=== PATIENT | male | born 1995 ===

== ENCOUNTER 2017-12-29 10:45 | Emergency (ER) | payer OTHER ==
--- NOTE | 2017-12-29 14:19 | UC ---
FLU HPI - HPI Summary HPI Summary: Pt c/o sudden onset of generalized malaise, fever, chills, and neck stiffness X 2 days. - History of Current Complaint Chief Complaint: UCRespiratory Stated Complaint: NECK PAIN Time Seen by Provider: 12/29/17 13:50 Hx Obtained From: Patient Onset/Duration: Sudden Onset, Lasting Days, Still Present Severity Currently: Mild Severity Initially: Mild Pain Intensity: 6 Associated Signs & Symptoms: Positive: Myalgia Related Hx: Possible Flu/Infectious Exposure - Risk Factors Influenza Risk Factors: Negative - Allergy/Home Medications Allergies/Adverse Reactions: Allergies Allergy/AdvReac Type Severity Reaction Status Date / Time amoxicillin Allergy Hives Verified 12/29/17 13:44 Penicillins Allergy Hives Verified 12/29/17 13:44 Home Medications: Home Medications Ibuprofen TAB* [Motrin TAB* 600 MG] 600 mg PO Q6H PRN 12/29/17 [History Confirmed 12/29/17] PMH/Surg Hx/FS Hx/Imm Hx Previously Healthy: Yes - Surgical History Surgical History: None - Family History Known Family History: Positive: Cardiac Disease - Social History Occupation: Student Lives: Dormitory/Roommates Alcohol Use: Occasionally Substance Use Type: None Smoking Status (MU): Never Smoked Tobacco Have You Smoked in the Last Year: No Review of Systems Constitutional: Fever, Chills Skin: Negative Eyes: Negative ENT: Negative Respiratory: Negative Cardiovascular: Negative Gastrointestinal: Negative Genitourinary: Negative Motor: Decreased ROM - neck Neurovascular: Negative Musculoskeletal: Decreased ROM - neck, Myalgia - neck Neurological: Negative Psychological: Negative Is Patient Immunocompromised?: No All Other Systems Reviewed And Are Negative: Yes Physical Exam Triage Information Reviewed: Yes Appearance: Well-Appearing Vital Signs: Initial Vital Signs Temp 99.6 F 12/29/17 13:40 Pulse 96 12/29/17 13:40 Resp 16 12/29/17 13:40 BP 123/71 12/29/17 13:40 Pulse Ox 99 12/29/17 13:40 Vital Signs Reviewed: Yes Eye Exam: Normal ENT Exam: Normal Dental Exam: Normal Neck exam: Other - neck stiffness Respiratory Exam: Normal Cardiovascular Exam: Normal Musculoskeletal: Positive: ROM Limited @ - neck, trigger point pain left upper shoulder medial aspect. Neurological Exam: Normal Psychological Exam: Normal Skin Exam: Normal Flu Course/Dx - Course Course Of Treatment: Rapid flu: negative - Differential Dx/Diagnosis Differential Diagnosis/HQI/PQRI: Influenza, Upper Respiratory Infection Provider Diagnoses: Trigger point muscle spasm. URI Discharge - Discharge Plan Condition: Stable Disposition: HOME Patient Education Materials: Upper Respiratory Infection (ED), Trigger Point Pain (ED), Neck Pain (ED) Referrals: [facility] [place] [facility] [Outside] Non Staff,Doctor [Primary Care Provider] -
== END 2017-12-29 14:26 | disposition home or self-care (01) ==
LOC: UCCORT 10:45
DX: Z72.89 Other problems related to lifestyle (principal); M62.838 Other muscle spasm; J06.9 Acute upper respiratory infection, unspecified
CPT/HCPCS: 87502; 99201; G0463

== ENCOUNTER 2018-10-11 11:55 | Emergency (ER) | payer OTHER ==
--- NOTE | 2018-10-11 13:07 | UC ---
Respiratory Complaint HPI - HPI Summary HPI Summary: persistant cough that gets worse at night for the past two weeks, he is a smoker , denies fever or other symtpoms - History of Current Complaint Stated Complaint: COUGH Time Seen by Provider: 10/11/18 13:06 Hx Obtained From: Patient Onset/Duration: Sudden Onset, Lasting Days Timing: Constant Severity Initially: Mild Severity Currently: Mild Aggravating Factors: Exertion, Recumbent Position Alleviating Factors: Nothing - Allergies/Home Medications Allergies/Adverse Reactions: Allergies Allergy/AdvReac Type Severity Reaction Status Date / Time amoxicillin Allergy Hives Verified 10/11/18 13:04 Penicillins Allergy Hives Verified 10/11/18 13:04 Home Medications: Home Medications Amphetamine MIXED SALTS TAB* [Adderall TAB*] 15 mg PO DAILY PRN 10/11/18 [ History Confirmed 10/11/18] PMH/Surg Hx/FS Hx/Imm Hx Previously Healthy: Yes - Surgical History Surgical History: None - Family History Known Family History: Positive: Cardiac Disease - Social History Alcohol Use: Occasionally Substance Use Type: None Smoking Status (MU): Never Smoked Tobacco Have You Smoked in the Last Year: No Review of Systems All Other Systems Reviewed And Are Negative: Yes Constitutional: Positive: Negative Skin: Positive: Negative Eyes: Positive: Negative ENT: Positive: Negative Respiratory: Positive: Shortness Of Breath, Cough Cardiovascular: Positive: Negative Gastrointestinal: Positive: Negative Genitourinary: Positive: Negative Motor: Positive: Negative Neurovascular: Positive: Negative Musculoskeletal: Positive: Negative Neurological: Positive: Negative Psychological: Positive: Negative Is Patient Immunocompromised?: No Physical Exam Triage Information Reviewed: Yes Appearance: Well-Appearing, Well-Nourished, Pain Distress Eye Exam: Normal ENT: Positive: Pharynx normal, TM bulging Dental Exam: Normal Neck exam: Normal Respiratory Exam: Normal Respiratory: Positive: Chest non-tender, Wheezing, Expiration, Inspiration Cardiovascular Exam: Normal Cardiovascular: Positive: RRR, No Murmur, Pulses Normal Bowel Sounds: Positive: Present Musculoskeletal Exam: Normal Neurological Exam: Normal Psychological Exam: Normal Skin Exam: Normal Respiratory Course/Dx - Course Course Of Treatment: hx obtained, exam performed ,meds reviewed, neb treatement given, treated for bronchospasm and serous otitis - Differential Dx/Diagnosis Differential Diagnosis/HQI/PQRI: Asthma, Bronchitis, Laryngitis, Sinusitis Provider Diagnoses: right serous otitis. bronchospasm. toabacoo abuse Discharge - Sign-Out/Discharge Documenting (check all that apply): Patient Departure All imaging exams completed and their final reports reviewed: No Studies - Discharge Plan Condition: Stable Disposition: HOME Prescriptions: Albuterol HFA INHALER* [Ventolin HFA Inhaler*] 2 puff INH Q4H PRN #1 mdi PRN Reason: Wheezing predniSONE [Prednisone 20 MG TAB] 40 mg PO DAILY #14 tablet Patient Education Materials: Bronchospasm (ED) Referrals: No Primary Care Phys,NOPCP [Primary Care Provider] - Additional Instructions: 1. take the medication as prescribed. I would start the prednisone in the morning. 2. Use the inhaler as needed 3. Increase fluid intake and get plenty of rest 4. FOllow up as needed. - Billing Disposition and Condition Condition: STABLE Disposition: Home
[2018-10-11 13:10] VITALS: BP 132/78
[2018-10-11] MEDS ORDERED: Albuterol 2.5 MG/3 ML NEB.SOL* (0.083%) INH ONE (13:14)
== END 2018-10-11 13:53 | disposition home or self-care (01) ==
LOC: UCCORT 11:55
DX: H65.91 Unspecified nonsuppurative otitis media, right ear (principal); J98.01 Acute bronchospasm; F17.200 Nicotine dependence, unspecified, uncomplicated; Z88.0 Allergy status to penicillin
CPT/HCPCS: 99212; G0463

== ENCOUNTER 2019-07-26 19:56 | Emergency (ER) | payer OTHER, BC ==
[2019-07-26 20:06] VITALS: BP 116/72
--- NOTE | 2019-07-26 20:14 | UC ---
UC General HPI - HPI Summary HPI Summary: pt is unable to straighten the tip of his R 4th finger after it got jammed by a football that he tried to catch. 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 - History of Current Complaint Chief Complaint: UCUpperExtremity Stated Complaint: RIGHT RING FINGER INJURY Time Seen by Provider: 07/26/19 20:01 Hx Obtained From: Patient Onset/Duration: Sudden Onset Timing: Constant Pain Intensity: 0 - Allergy/Home Medications Allergies/Adverse Reactions: Allergies Allergy/AdvReac Type Severity Reaction Status Date / Time amoxicillin Allergy Hives Verified 07/26/19 20:02 Penicillins Allergy Hives Verified 07/26/19 20:02 Home Medications: Home Medications NK [No Home Medications Reported] 07/26/19 [History Confirmed 07/26/19] PMH/Surg Hx/FS Hx/Imm Hx Previously Healthy: Yes - Surgical History Surgical History: None - Family History Known Family History: Positive: Cardiac Disease - Social History Alcohol Use: Occasionally Substance Use Type: Marijuana Substance Use Comment - Amount & Last Used: twice weekly- last used yesterday Smoking Status (MU): Never Smoked Tobacco Have You Smoked in the Last Year: No - Immunization History Most Recent Tetanus Shot: UTD Review of Systems All Other Systems Reviewed And Are Negative: No Skin: Negative: Rash Musculoskeletal: Positive: Decreased ROM - tip R 4th finger. Negative: Edema Neurological: Negative: Weakness, Paresthesia, Numbness Physical Exam Triage Information Reviewed: Yes Appearance: Well-Appearing Vital Signs: Initial Vital Signs Temp 98.7 F 07/26/19 20:02 Pulse 94 07/26/19 20:02 Resp 16 07/26/19 20:02 BP 116/72 07/26/19 20:02 Pulse Ox 98 07/26/19 20:02 Vital Signs Reviewed: Yes Cardiovascular: Positive: RRR Musculoskeletal: Positive: Other: - R hand: tip of r 4th finger flexed at the DIP joint, pt not able to straighten. he is able to flex that finger. the digit is non tender and has gross s/v function. rest of hand is unremarkable. Neurological: Positive: Alert Psychological: Positive: Age Appropriate Behavior Skin Exam: Normal Diagnostics - Radiology No standard instances Radiology Interpretation Completed By: ED Physician - R 4th finger=nad Course/Dx - Course Course Of Treatment: PROCEDURE: VOLAR ALUMINUM FOAM SPLINT APPLIED TO r 4TH FINGER TO HOLD THE TIP IN EXTENSION. GROSS S/V INTACT PRE AND POST SPLINT. PT INSTRUCTED TO NOT REMOVE THE SPLINT. - Differential Dx - Multi-Symptom Differential Diagnoses: Other - no fx or dislocation. c/w mallet finger - Diagnoses Provider Diagnosis: Mallet deformity of right ring finger Discharge ED - Sign-Out/Discharge Documenting (check all that apply): Patient Departure All imaging exams completed and their final reports reviewed: No - Discharge Plan Condition: Stable Disposition: HOME Patient Education Materials: Dreadmed Finger (ED) Referrals: Trena Teixeira MD [Medical Doctor] - As Soon As Possible Additional Instructions: KEEP SPLINT ON AT ALL TIMES. - Billing Disposition and Condition Condition: STABLE Disposition: Home - Attestation Statements Provider Attestation: I was available for consult. This patient was seen by the HCRISTINE. The patient was not presented to , seen by or examined by oh -Sylvia Gates MD
--- NOTE | 2019-07-27 09:30 | UC ---
- Progress Note Progress Note: Final radiologist reading of right ring finger x-ray comes back from July as no fracture or dislocation. Provider interpretation of the same date is the same therefore there is no discrepancy. Course/Dx - Diagnoses Provider Diagnoses: Mallet deformity of right ring finger Discharge ED - Sign-Out/Discharge Documenting (check all that apply): Patient Departure All imaging exams completed and their final reports reviewed: Yes - Discharge Plan Condition: Stable Disposition: HOME Patient Education Materials: Santiago Aleman (ED) Referrals: Trena Teixeira MD [Medical Doctor] - As Soon As Possible Additional Instructions: KEEP SPLINT ON AT ALL TIMES. - Billing Disposition and Condition Condition: STABLE Disposition: Home
== END 2019-07-26 20:35 | disposition home or self-care (01) ==
LOC: UCCORT 19:56
DX: M20.011 Mallet finger of right finger(s) (principal)
CPT/HCPCS: 73140; 99211; G0463